=== PATIENT | female | born 1985 | race Caucasian/White ===

== ENCOUNTER 2017-07-23 20:32 | Emergency (ER) | payer OTHER ==
[~2017-07-23] VITALS: Ht 167.6 cm; Wt 75.7 kg
[2017-07-23] MEDS ORDERED: [UNRECOGNIZED DRUG - OTHER] (20:47)
[2017-07-23 21:15] VITALS: BP 178/87
--- NOTE | 2017-07-23 21:15 | Emergency Room Report ---
History of Present Illness General Chief Complaint: Syncope Source: Patient Present Illness HPI Is a 60-year-old Citizen Of [place] speaking female who came in with nosebleed and syncope. She has a history of high blood pressure and brain aneurysm that required coiling. An hour ago she started having nosebleed and she saw the blood she got lightheaded had a syncopal episode. No injury. Bleeding is still wheezing. Denies any trauma. No recent cold. No nose picking Allergies: Coded Allergies: PENICILLINS (Verified Allergy, Unknown, 07/23/17) Patient History Past Medical History: see triage record, old chart reviewed, HTN, CAD Past Surgical History: other Pertinent Family History: none Social History: Denies: smoking Last Menstrual Period: NA Now: No Immunizations: other Reviewed Nursing Documentation: PMH: Agreed; PSxH: Agreed Nursing Documentation-PMH Hx Hypertension: Yes Review of Systems Eye: Denies: eye pain, blurred vision ENT: Denies: ear pain, nose congestion, throat swelling Respiratory: Denies: cough, shortness of breath Cardiovascular: Denies: chest pain, palpitations Gastrointestinal: Denies: abdominal pain, diarrhea, nausea, vomiting Musculoskeletal: Denies: back pain, joint pain Skin: Denies: rash Neurological: Denies: headache, numbness Endocrine: Denies: increased thirst, increased urine Hematologic/Lymphatic: Denies: easy bruising All Other Systems: negative except mentioned in HPI Physical Exam Vital Signs Date Time Temp Pulse Resp B/P (MAP) Pulse Ox O2 Delivery O2 Flow Rate FiO2 07/23/17 20:40 98.0 73 18 156/105 98 Room Air 98.1 vitals with high blood pressure Sp02 EP Interpretation: reviewed, normal General Appearance: well appearing, no apparent distress, alert Head: normocephalic, atraumatic Eyes: bilateral eye PERRL, bilateral eye EOMI ENT: hearing grossly normal, normal pharynx, other - oozing of blood from the septum in right nares. Neck: full range of motion, supple, no meningismus Respiratory: chest non-tender, lungs clear, normal breath sounds Cardiovascular #1: regular rate, rhythm, no murmur Gastrointestinal: normal bowel sounds, non tender, no mass, no organomegaly, no bruit, non-distended Musculoskeletal: back normal, gait/station normal, normal range of motion Neurologic: alert, oriented x3 Psychiatric: mood/affect normal Skin: warm/dry Procedures Additional Procedure Procedure Narrative Procedure: Epistaxis control Indication: Epistaxis Description: I place a 4.5 cm Rhino Rocket to the right nares. Balloon inflated. Patient tolerated procedure without a problem. Bleeding stopped. No complication. Medical Decision Making Diagnostic Impression: Primary Impression: Syncope Qualified Codes: R55 - Syncope and collapse Additional Impression: Anterior epistaxis ER Course Patient with epistaxis. No evidence of posterior bleeding. Her syncope is probably secondary to her bleeding. No evidence of intracranial bleed. No evidence of endorgan damage. Bleeding with Rhino Rocket. Per daughter, her blood pressure would shoot up high when she gets anxious and nervous. We'll write for something to help her. Lab Results Impression labs normal EKG Diagnostic Results Rate: normal Rhythm: NSR ST Segments: no acute changes Rhythm Strip Diag. Results Rhythm Strip Time: 21:29 EP Interpretation: yes Rate: 60 Rhythm: NSR, no PVC's, no ectopy CT/MRI/US Diagnostic Results CT/MRI/US Diagnostic Results : Impression read by radiologist. No Acute process. Last Vital Signs Date Time Temp Pulse Resp B/P (MAP) Pulse Ox O2 Delivery O2 Flow Rate FiO2 07/23/17 20:40 98.0 73 18 156/105 98 Room Air 98.1 Status: improved Disposition: HOME, SELF-CARE Condition: Stable Scripts Buspirone Hcl* (BUSPAR*) 10 Mg Tablet 10 MG ORAL THREE TIMES A DAY, #30 TAB 0 Refills Prov: UZMA SHORE M.D. 07/23/17 Additional Instructions: Keep packing in for 2-3 days. Follow-up with your doctor for removal. Return if symptom worsen. UZMA SHORE M.D. July 23, 2017 21:15
[2017-07-23 22:08] LABS: BASOPHILS % (AUTO) 1.4 % (0.0-2.0); EOSINOPHILS % (AUTO) 4.9 % (0.0-3.0); HEMATOCRIT 39.3 % (37.0-47.0); HEMOGLOBIN 13.2 G/DL (12.0-16.0); LYMPHOCYTES % (AUTO) 45.8 % (20.0-45.0); MEAN CORPUSCULAR VOLUME 85 FL (80-99); MONOCYTES % (AUTO) 11.2 % (1.0-10.0); NEUTROPHILS % (AUTO) 36.6 % (45.0-75.0); PLATELET COUNT 282 K/UL (150-450); RED BLOOD COUNT 4.63 M/UL (4.20-5.40); WHITE BLOOD COUNT 7.4 K/UL (4.8-10.8)
[2017-07-23 22:12] LABS: ANION GAP 7 mmol/L (5-15); BLOOD UREA NITROGEN 21 mg/dL (7-18); CALCIUM 9.7 MG/DL (8.5-10.1); CARBON DIOXIDE 29 MMOL/L (21-32); CHLORIDE 104 MMOL/L (98-107); CREATININE 0.6 MG/DL (0.55-1.30); POTASSIUM 4.1 MMOL/L (3.5-5.1); SODIUM 140 MMOL/L (136-145)
[2017-07-23 22:17] LABS: INR 0.9 (0.9-1.1)
[2017-07-23] MEDS ORDERED: BUSPAR10 MG ORAL (22:28)
[2017-07-23 22:30] VITALS: BP 148/85
[2017-07-23 22:40] VITALS: BP 148/85
--- NOTE | 2017-07-24 10:57 | Diagnostic Imaging Report ---
Indications: Syncope Technique: Spiral acquisitions obtained through the brain. Angled axial and coronal 5 x 5 mm slices were reconstructed. Total dose length product 1397.2 mGycm. CTDI vol(s) 70.38 mGy. Dose reduction achieved using automated exposure control Comparison: None. Findings: The calvarium is intact. The sinuses are clear. The orbits are unremarkable. There are left-sided supraclinoid aneurysm coils. This results in streak artifact which could obscure pathology. No definite acute intracranial hemorrhage or edema, mass effect, or midline shift. Normal shoemaker-white differentiation. Impression: Evidence of prior left-sided aneurysm coiling. Note that streak artifact from coils could obscure pathology No definite evidence of acute intracranial bleed or mass effect This agrees with the preliminary interpretation provided overnight by [facility]. The CT scanner at [facility] is accredited by the [employer] and the scans are performed using protocols designed to limit radiation exposure to as low as reasonably achievable to attain images of sufficient resolution adequate for diagnostic evaluation.
--- NOTE | 2017-07-25 17:07 | Cardiology Report ---
APPROVED REPORT EKG Measurement Heart [id number] Normal sinus rhythm Septal infarct, age undetermined Abnormal ECG
== END 2017-07-23 22:40 | disposition home or self-care (01) ==
LOC: EDBD 21:40 → EMR 21:40
DX: R55 Syncope and collapse (principal); R04.0 Epistaxis; I10 Essential (primary) hypertension; Z88.0 Allergy status to penicillin
CPT/HCPCS: 30901; 36415; 70450; 80048; 84484; 85025; 85610; 85730; 93005; 99284